=== PATIENT | male | born 1980 | race Caucasian/White ===

== ENCOUNTER 2024-09-05 15:11 | Inpatient (IN) | payer MEDICARE, OTHER ==
[~2024-09-05] VITALS: Ht 167.6 cm; Wt 111.2 kg
[2024-09-05] MEDS: MAGNESIUM SULFATE/D5W 100 ML IV SCH (15:30)
[2024-09-05] MEDS: methylPREDNISolone SOD SUCC 40 MG/ML VIAL IV ONE (15:30)
[2024-09-05] MEDS: IPRATROPIUM BROMIDE 0.5 MG/2.5 ML NEBU NEB ONE (15:37)
[2024-09-05] MEDS: ALBUTEROL SULFATE 2.5 MG/3 ML NEBU NEB ONE (15:37)
[2024-09-05] MEDS ORDERED: ALBUTEROL SULFATE 2.5 MG/3 ML NEBU ONE (15:40)
[2024-09-05] MEDS ORDERED: IPRATROPIUM BROMIDE 0.5 MG/2.5 ML NEBU ONE (15:41)
[2024-09-05 15:45] VITALS: O2SAT 94
[2024-09-05 15:52] LABS: BASOPHILS # (AUTO) 0.1 K/UL (0.0-0.2); BASOPHILS % (AUTO) 0.6 % (0.0-2.0); EOSINOPHILS # (AUTO) 0.1 K/uL (0.0-0.7); EOSINOPHILS % (AUTO) 0.8 % (0.0-7.0); HEMATOCRIT 44.3 % (36.7-47.1); HEMOGLOBIN 14.6 g/dL (12.5-16.3); LYMPHOCYTES % (AUTO) 11.8 % (20.5-51.5); MEAN CORPUSCULAR HEMOGLOBIN 31.7 uug (23.8-33.4); MEAN CORPUSCULAR HGB CONC 33 g/dL (32.5-36.3); MEAN CORPUSCULAR VOLUME 96.1 fL (73.0-96.2); MONOCYTES # (AUTO) 1.7 K/uL (0.1-1.30); NEUTROPHILS # (AUTO) 13.3 K/uL (1.8-8.9); NEUTROPHILS % (AUTO) 76.8 % (38.5-71.5); PLATELET COUNT (AUTO) 297 K/uL (152-348); RED BLOOD CELL COUNT(AUTO) 4.61 MIL/uL (4.06-5.63); RED CELL DISTRIBUTION WIDTH 13.7 % (12.1-16.2); WHITE BLOOD COUNT (AUTO) 17.3 K/uL (3.6-10.2)
[2024-09-05 15:53] LABS: DIFFERENTIAL COMMENT 1
[2024-09-05 15:59] LABS: POTASSIUM 3.6 mmol/L (3.5-5.1)
[2024-09-05 16:05] LABS: ALBUMIN 3.6 g/dL (3.4-5.0); BILIRUBIN,DIRECT 0.2 mg/dL (0.0-0.2); BILIRUBIN,TOTAL 0.7 mg/dL (0.2-1.0); TOTAL PROTEIN, SERUM 7.9 g/dL (6.4-8.2)
[2024-09-05] MEDS: VANCOMYCIN IV 1,000 MG in IV DEXTROSE 5% 250 ML IV ONE (16:30)
[2024-09-05 16:42] VITALS: O2SAT 95
[2024-09-05] MEDS ORDERED: MAGNESIUM SULFATE/D5W 100 ML ONE (17:12)
[2024-09-05] MEDS ORDERED: methylPREDNISolone SOD SUCC 40 MG/ML VIAL ONE (17:13)
[2024-09-05] MEDS ORDERED: VANCOMYCIN IV 200 ML ONE ×2 (17:44→22:46)
[2024-09-05] MEDS ORDERED: NICO-671 TP (17:57)
[2024-09-05] MEDS ORDERED: OLAN5TAB3 PO (17:57)
[2024-09-05] MEDS ORDERED: BUDE0.5A NEB (17:57)
[2024-09-05] MEDS ORDERED: OLAN10TA3 PO (17:57)
[2024-09-05] MEDS ORDERED: IPRA3AMP23 IH (17:57)
[2024-09-05] MEDS ORDERED: ALBU6.7H9 INH (17:57)
[2024-09-05] MEDS ORDERED: ACETAMINOPHEN 500 MG TABLET ONE (18:27)
[2024-09-05] MEDS ORDERED: ALBUTEROL SULFATE 8 GM HFA.AER.AD INH PRN (18:30)
[2024-09-05] MEDS ORDERED: ACETAMINOPHEN 325 MG TABLET PO PRN (18:30)
[2024-09-05] MEDS ORDERED: ONDANSETRON 4 MG/2 ML VIAL IV PRN (18:30)
[2024-09-05] MEDS ORDERED: MORPHINE SULFATE 2 MG/1 ML DISP.SYRIN IVP PRN (18:30)
[2024-09-05] MEDS ORDERED: hydrALAZINE HCL 20 MG/1 ML VIAL IV PRN (18:30)
[2024-09-05] MEDS: PIPERACILLIN SODIUM/TAZOBACTAM 4.5 G in IV DEXTROSE 5% 50 ML IV SCH (19:00)
[2024-09-05] MEDS ORDERED: PIPERACILLIN/TAZO 4.5 GM VIAL IV ONE (20:43)
[2024-09-05] MEDS: CEFEPIME HCL 1 G in IV DEXTROSE 5% 50 ML IV SCH (22:00)
[2024-09-05] MEDS ORDERED: CEFEPIME HCL 1 G VIAL ONE (22:47)
[2024-09-05 23:13] VITALS: BP 166/85; TEMP 98.1; O2SAT 94
[2024-09-05] MEDS: NICOTINE 14 MG/24HR PATCH TD SCH (23:45)
[2024-09-05 23:51] VITALS: O2SAT 97
[2024-09-05] MEDS: ALBUTEROL SULFATE 2.5 MG/3 ML NEBU NEB PRN (23:52)
[2024-09-06] VITALS (10 sets, daily range): BP systolic 122–159; BP diastolic 88–98; TEMP 97.3–98.1; O2SAT 94–99
[2024-09-06] MEDS: VANCOMYCIN IV 1,000 MG in IV DEXTROSE 5% 250 ML IV ONE (05:03)
[2024-09-06 06:51] LABS: BASOPHILS % (AUTO) 0.2 % (0.0-2.0); HEMATOCRIT 41.8 % (36.7-47.1); LYMPHOCYTES # (AUTO) 1.4 K/uL (0.8-4.8); MEAN CORPUSCULAR HGB CONC 33 g/dL (32.5-36.3); MEAN CORPUSCULAR VOLUME 95.7 fL (73.0-96.2); MONOCYTES % (AUTO) 5.6 % (0.0-11.0); NEUTROPHILS # (AUTO) 15.6 K/uL (1.8-8.9); NEUTROPHILS % (AUTO) 86.2 % (38.5-71.5); PLATELET COUNT (AUTO) 303 K/uL (152-348); RED BLOOD CELL COUNT(AUTO) 4.37 MIL/uL (4.06-5.63); RED CELL DISTRIBUTION WIDTH 13.7 % (12.1-16.2); WHITE BLOOD COUNT (AUTO) 18.1 K/uL (3.6-10.2)
[2024-09-06 07:04] LABS: DIFFERENTIAL COMMENT 1
[2024-09-06 07:07] LABS: ALBUMIN 3.2 g/dL (3.4-5.0); BILIRUBIN,TOTAL 0.6 mg/dL (0.2-1.0); CALCIUM 8.8 mg/dL (8.5-10.1); CREATININE 0.8 mg/dL (0.6-1.3); PHOSPHOROUS 4.2 mg/dL (2.5-4.9); POTASSIUM 4.2 mmol/L (3.5-5.1); TOTAL PROTEIN, SERUM 7.4 g/dL (6.4-8.2)
[2024-09-06] MEDS: BUDESONIDE 0.5 MG/2 ML NEBU NEB ONE (08:01)
[2024-09-06] MEDS: OLANZAPINE 5 MG TABLET PO SCH (08:07)
[2024-09-06] MEDS: FLUTICASONE/VILANTEROL 1 EACH BLST.W.DEV INH SCH (08:07)
[2024-09-06] MEDS: HEPARIN SODIUM,PORCINE 5,000 UNITS/ML VIAL SQ SCH (08:08)
[2024-09-06] MEDS ORDERED: BUDESONIDE 0.5 MG/2 ML NEBU NEB SCH (09:00)
[2024-09-06] MEDS ORDERED: MORPHINE SULFATE 2 MG/1 ML DISP.SYRIN IVP PRN ×2 (09:45→10:45)
[2024-09-06] MEDS ORDERED: KETOROLAC TROMETHAMINE 15 MG INJ IVP PRN (11:15)
[2024-09-06] MEDS: CEFEPIME HCL 2 GM in IV DEXTROSE 5% 100 ML IV SCH (13:56)
[2024-09-06] MEDS ORDERED: METO-356 PO (14:41)
[2024-09-06] MEDS: METOPROLOL SUCCINATE XL 25 MG TAB.SR.24H PO SCH (15:33)
[2024-09-06] MEDS: VANCOMYCIN IV 2,000 MG in IV DEXTROSE 5% 500 ML IV SCH (16:19)
[2024-09-06] MEDS ORDERED: OLANZAPINE 5 MG TABLET PO SCH (18:00)
[2024-09-06] MEDS: ACIDOPHILUS/BULGARICUS CHEW TAB PO SCH (20:08)
[2024-09-06] MEDS: LEVALBUTEROL HCL NEB 0.63 MG/3 ML NEBU NEB PRN (20:10)
[2024-09-06] MEDS: BUDESONIDE 0.5 MG/2 ML NEBU NEB SCH (20:10)
[2024-09-06] MEDS: PIPERACILLIN SODIUM/TAZOBACTAM 3.375 G in IV DEXTROSE 5% 100 ML IV SCH (21:35)
[2024-09-06] MEDS: methylPREDNISolone SOD SUCC 40 MG/ML VIAL IV SCH (21:36)
[2024-09-06] MEDS ORDERED: PIPERACILLIN SODIUM/TAZOBACTAM 3.375 G in IV DEXTROSE 5% 50 ML IV SCH (22:00)
[2024-09-06] MEDS ORDERED: CEFEPIME HCL 2 GM in IV DEXTROSE 5% 100 ML IV SCH (22:00)
[2024-09-07] VITALS (8 sets, daily range): BP systolic 114–160; BP diastolic 81–99; TEMP 97.8–98.2; O2SAT 92–99
[2024-09-07 07:02] LABS: CALCIUM 9.2 mg/dL (8.5-10.1); POTASSIUM 4.9 mmol/L (3.5-5.1)
[2024-09-07] MEDS: METOPROLOL SUCCINATE XL 25 MG TAB.SR.24H PO ONE (09:25)
[2024-09-07] MEDS: methylPREDNISolone SOD SUCC 40 MG/ML VIAL IV SCH (20:34)
[2024-09-08 01:01] VITALS: BP 147/79; TEMP 97.4; O2SAT 93
[2024-09-08] MEDS ORDERED: PIPERACILLIN/TAZOBACTAM/D5W 50 ML IV ONE (06:08)
[2024-09-08 06:45] VITALS: BP 128/79; TEMP 97.6; O2SAT 93
[2024-09-08 08:00] VITALS: BP 147/79; TEMP 97.8; O2SAT 93
[2024-09-08 08:13] LABS: BASOPHILS # (AUTO) 0.1 K/UL (0.0-0.2); BASOPHILS % (AUTO) 0.7 % (0.0-2.0); EOSINOPHILS % (AUTO) 0.1 % (0.0-7.0); HEMATOCRIT 44.7 % (36.7-47.1); HEMOGLOBIN 14.7 g/dL (12.5-16.3); LYMPHOCYTES # (AUTO) 1.8 K/uL (0.8-4.8); LYMPHOCYTES % (AUTO) 8.4 % (20.5-51.5); MEAN CORPUSCULAR HEMOGLOBIN 31.5 uug (23.8-33.4); MEAN CORPUSCULAR HGB CONC 33 g/dL (32.5-36.3); MEAN CORPUSCULAR VOLUME 95.8 fL (73.0-96.2); MONOCYTES # (AUTO) 1.3 K/uL (0.1-1.30); MONOCYTES % (AUTO) 6.2 % (0.0-11.0); NEUTROPHILS # (AUTO) 18.2 K/uL (1.8-8.9); NEUTROPHILS % (AUTO) 84.6 % (38.5-71.5); PLATELET COUNT (AUTO) 354 K/uL (152-348); RED BLOOD CELL COUNT(AUTO) 4.66 MIL/uL (4.06-5.63); RED CELL DISTRIBUTION WIDTH 13.6 % (12.1-16.2); WHITE BLOOD COUNT (AUTO) 21.4 K/uL (3.6-10.2)
[2024-09-08 08:25] LABS: DIFFERENTIAL COMMENT 1
[2024-09-08 08:45] LABS: CALCIUM 9.2 mg/dL (8.5-10.1); CREATININE 0.9 mg/dL (0.6-1.3); MAGNESIUM 2.3 mg/dL (1.8-2.4); PHOSPHOROUS 4.5 mg/dL (2.5-4.9); POTASSIUM 4.2 mmol/L (3.5-5.1)
[2024-09-08 09:16] VITALS: O2SAT 95
[2024-09-08 09:26] VITALS: O2SAT 99
[2024-09-08 10:12] VITALS: BP 146/92
[2024-09-08] MEDS: METOPROLOL SUCCINATE XL 50 MG TAB.SR.24H PO SCH (10:12)
[2024-09-08] MEDS ORDERED: METH4TAB3 PO (12:36)
[2024-09-08] MEDS ORDERED: AMOX-430 PO (12:36)
[2024-09-08] MEDS ORDERED: METO-357 PO (12:36)
== END 2024-09-08 14:00 | disposition home or self-care (01) | DRG 871 ==
LOC: ER 15:11 → MEDSURG3 21:56 → MEDSURG1 09-07 23:40
PROVIDERS: ADMIT Internal Medicine; ATTEND Internal Medicine
DX: A41.9 Sepsis, unspecified organism (principal); J18.9 Pneumonia, unspecified organism; J96.01 Acute respiratory failure with hypoxia; J21.9 Acute bronchiolitis, unspecified; J44.0 Chronic obstructive pulmonary disease with (acute) lower respiratory infection; J45.901 Unspecified asthma with (acute) exacerbation; F31.81 Bipolar II disorder; E66.01 Morbid (severe) obesity due to excess calories; Z68.39 Body mass index [BMI] 39.0-39.9, adult; R65.20 Severe sepsis without septic shock; F15.11 Other stimulant abuse, in remission; I10 Essential (primary) hypertension; T38.0X5A Adverse effect of glucocorticoids and synthetic analogues, initial encounter; Y92.89 Other specified places as the place of occurrence of the external cause; Z86.19 Personal history of other infectious and parasitic diseases; K76.0 Fatty (change of) liver, not elsewhere classified; R73.9 Hyperglycemia, unspecified
CPT/HCPCS: 36415; 71045; 71250; 83735; 84100; 85025; 87040; 93005; 94640; 94760; A4663; A9150; G0378; J0692; J1644; J2543; J2919; J3370; J3475; J3590; J7040; J7050; J7060; J7614